=== PATIENT | female | born 1945 | race Caucasian/White ===

== ENCOUNTER → 2017-01-22 | Outpatient (CLI) | payer MEDICARE, MEDICAID ==
[~2017-01-22] MED LIST: KEFLEX 500MG.500 MG PO; LISINOPRIL 10MG10 MG PO; MEDROL 4MG. DOSE4 MG PO; PRAVASTATIN 20M20 MG PO
[2017-01-22 11:02] LABS: HEMOGLOBIN 12.2 g/dL (12.2-16.2); LYMPH # 2.1 K/mm3 (0.7-4.5); LYMPH % 32.3 % (10-50.0)
[2017-01-22 12:16] LABS: BUN 22 mg/dL (7-18)
[2017-01-22 12:20] LABS: GFR (ESTIMATED) 37 ML/MIN (59-)
--- NOTE | 2017-01-22 15:30 | RADIOLOGY REPORT PS360 ---
PROCEDURE: 2-D M-mode and color Doppler study INDICATIONS FOR THE TEST: Chest pain COPD Heart Murmur Tobacco Smoking Palpitations Fatigue Syncope Edema Hypertension Diabetes Mellitus Rheumatic Fever SOB DOEXObesityXHyperlipidemia Family History HD Additional History PORCINE AV PATIENT INFORMATION HEIGHT: 64 WEIGHT:194 GENDER: Female B/P:138/72 2-D/M-MODE INTERPRETATION: 2-D MEASUREMENTS OBSERVED VALUES IN CMS Right Ventricular Dimension (RVDd) 1.5 Interventricular Septum (Thickness)(IVsd) 1.1 Left Ventricular Internal Dimensions(LVIDd) 4.5 Left Ventricular Posterior Wall (Thickness)(LVPWd) 1.1 Aortic Root 2.8 Aortic Cusp Separation .9 Left Atrial Dimensions (LAD) 3.2 2D 1. Left atrium is mildly enlarged, left ventricle is normal size, there is mild concentric left ventricular hypertrophy, visually estimated to fraction 50% with no obvious regional wall motion abnormality. 2. The right atrium and right ventricle are normal size and contractility. 3. 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 4. Mitral valve has dense mitral calcification which extends into the posterior mitral leaflet. 5. The tricuspid valve is structurally normal. 6. The pulmonic valve is not well visualized. 7. No significant pericardial effusion noted. DOPPLER INTERROGATION: 1. The maximum aortic out flow velocity across the prosthetic valve is 3 mm/s resulting in a mean gradient of 24 mmHg , there is mild aortic insufficiency present. 2. The mitral inflow velocity within normal range, there is no mitral stenosis, there is mild mitral regurgitation, grade 1 diastolic dysfunction seen with tissue Doppler evidence of raised left atrial pressure. 3. There is mild tricuspid regurgitation noted, tricuspid regurgitant jet velocity insufficient for calculation of the right ventricular systolic pressure. CONCLUSION: 1. Mildly enlarged left, normal left ventricular size, mild concentric left ventricular hypertrophy, visually estimated ejection fraction 55% with no obvious regional wall motion abnormality. Grade 1 diastolic dysfunction seen with Doppler evidence of raised left atrial pressure. 2. Bio prosthetic valve in the aortic position, mean gradient across the valve is 24 mmHg, there is mild aortic insufficiency present. 3. Mild mitral and tricuspid regurgitation. 4. No significant pericardial effusion noted.
--- NOTE | 2017-01-22 16:35 | RADIOLOGY REPORT PS360 ---
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 The heart size is normal. There is mild tortuosity/ectasia of the descending thoracic aorta.. The lungs are clear without infiltrates, suspicious nodules, or pleural effusions. No acute bony abnormalities. IMPRESSION: Prior CABG otherwise negative chest
== END ==
LOC: RT 10:47 → RAD 10:47 → RT 11:00
PROVIDERS: Family Medicine
DX: R06.09 Other forms of dyspnea (principal); I10 Essential (primary) hypertension; E78.5 Hyperlipidemia, unspecified; Z13.1 Encounter for screening for diabetes mellitus